=== PATIENT | female | born 1965 | race Caucasian/White ===

== ENCOUNTER → 2023-08-22 | Outpatient (REF) | payer BC | LOC: M LAB REF 13:39 | PROVIDERS: ATTEND Internal Medicine | DX: M25.50 Pain in unspecified joint (principal); E06.3 Autoimmune thyroiditis; R21 Rash and other nonspecific skin eruption ==

== ENCOUNTER → 2025-01-02 | Outpatient (CLI) | payer BC | LOC: M PLAIMG 10:22 | PROVIDERS: ATTEND Physician Assistant | DX: J32.8 Other chronic sinusitis (principal) ==

== ENCOUNTER → 2025-02-04 | Outpatient (REF) | payer BC ==
[2025-02-04 13:30] LABS: THYROXINE (T4) 7.9 UG/DL (4.5-10.9)
[2025-02-04 14:25] LABS: TOTAL T3 79.5 NG/DL (60.0-181.0)
[2025-02-04 14:27] LABS: THYROGLOBULIN ANTIBODY 396.0 U/ML (<60.0); THYROID PEROXIDASE ANTIBODY > 1300.0 U/ML (<60.0)
== END ==
LOC: M LAB REF 11:36
PROVIDERS: ATTEND Internal Medicine
DX: E06.3 Autoimmune thyroiditis (principal)

== ENCOUNTER 2025-02-16 07:46 | Emergency (ER) | payer BC ==
[~2025-02-16] VITALS: Ht 157.5 cm; Wt 80.4 kg
[2025-02-16] MEDS ORDERED: HYDR12.55 (07:59)
[2025-02-16] MEDS ORDERED: LEVO88TA3 (07:59)
[2025-02-16 08:50] LABS: BASO # 0.1 10^3/uL (0.0-0.2); BASO % 1.7 % (0.0-1.0); EOS # 0.3 10^3/uL (0.0-0.5); EOS % 7.6 % (0.0-3.0); LYMPH # 1.4 10^3/uL (1.5-5.0); LYMPH % 33.9 % (24.0-44.0); MONO # 0.3 10^3/uL (0.0-0.8); MONO % 7.6 % (2.0-8.0); NEUTROPHILS # 2.0 10^3/uL (1.5-8.5); NEUTROPHILS % 48.7 % (36.0-66.0); PLATELET COUNT, AUTOMATED 168 10^3/uL (150-450)
[2025-02-16 09:16] LABS: INR 0.92
[2025-02-16 09:21] LABS: CK-MB VALUE MASS 1.2 NG/ML (<3.6)
[2025-02-16 09:24] LABS: ALT/SGPT 21 U/L (7.0-40); AST/SGOT 21 U/L (<34); CALCIUM LEVEL 9.4 MG/DL (8.5-10.1); CARBON DIOXIDE LEVEL 25 MMOL/L (20-31); CHLORIDE LEVEL 108 MMOL/L (98-107); CREATININE FOR GFR 0.91 MG/DL (0.55-1.30); GLOMERULAR FILTRATION RATE 73.6 (>51); POTASSIUM SERUM 3.9 MMOL/L (3.5-5.1); SODIUM LEVEL 144 MMOL/L (136-145)
[2025-02-16 09:26] LABS: FREE T4 1.64 NG/DL (0.89-1.76)
[2025-02-16 09:27] LABS: CPK CREATINE PHOSPHOKINASE 75 U/L (34-145); MB/CK RELATIVE INDEX 1.60 (< OR =4)
[2025-02-16] MEDS: ASPIRIN 81 MG CHEWABLE TABLET PO ONE (09:41)
[2025-02-16] MEDS ORDERED: ISOVUE-370 76% 100 ML VIAL As Ordered ONE (10:05)
[2025-02-16 10:32] VITALS: BP 151/76
[2025-02-16] MEDS: NITROGLYCERIN 0.4 MG SUBL TABLET SL PRN (10:32)
[2025-02-16 10:45] LABS: CK-MB VALUE MASS < 1.0 NG/ML (<3.6); CPK CREATINE PHOSPHOKINASE 74 U/L (34-145)
[2025-02-16 13:06] LABS: CK-MB VALUE MASS < 1.0 NG/ML (<3.6)
[2025-02-16 13:22] LABS: CPK CREATINE PHOSPHOKINASE 66 U/L (34-145)
[2025-02-16] MEDS: HEPARIN DRIP 25,000 UNITS in IV 1 EA IV SCH (14:40)
[2025-02-16] MEDS: HEPARIN SOD 5000 UNITS/ML 1 ML VIAL/SYRINGE IV ONE (14:40)
[2025-02-16 16:25] VITALS: BP 133/77; TEMP 98.3; O2SAT 96
== END 2025-02-16 16:28 | disposition short-term general hospital (02) ==
LOC: M ED 07:46
DX: I20.0 Unstable angina (principal); I10 Essential (primary) hypertension; E03.9 Hypothyroidism, unspecified; Z88.0 Allergy status to penicillin; Z88.2 Allergy status to sulfonamides
CPT/HCPCS: 71045; 71275; 80048; 80076; 82550; 82553; 83690; 84439; 84443; 84484; 85025; 85610; 85730; 87486; 87581; 87633; 87798; 93005; 93041; 94760; 96365; 96366; 99285; Q9967

== ENCOUNTER → 2025-03-26 | Outpatient (CLI) | payer BC ==
[~2025-03-26] MED LIST: HYDR12.55; LEVO88TA3
== END ==
LOC: M RAD 15:06
PROVIDERS: ATTEND Internal Medicine
DX: M79.81 Nontraumatic hematoma of soft tissue (principal)

== ENCOUNTER → 2025-04-24 | Outpatient (CLI) | payer BC ==
[~2025-04-24] MED LIST changes: +METHACHOLINE KIT (6 VIAL.NEB PREMIX) INH ONE
== END ==
LOC: M CARPUL 13:45
PROVIDERS: ATTEND Internal Medicine
DX: R06.02 Shortness of breath (principal)
CPT/HCPCS: 94070; 95070; J7674